=== PATIENT | female | born 1985 | race Caucasian/White ===

== ENCOUNTER 2017-12-04 01:42 | Emergency (ER) | payer SELFPAY ==
[~2017-12-04] VITALS: Ht 172.7 cm; Wt 148.3 kg
[2017-12-04 01:53] VITALS: BP_SYST 148
== END 2017-12-04 03:02 | disposition left against medical advice (07) ==
LOC: SED 01:42
DX: S30.861A Insect bite (nonvenomous) of abdominal wall, initial encounter (principal); Z53.21 Procedure and treatment not carried out due to patient leaving prior to being seen by health care provider; W57.XXXA Bitten or stung by nonvenomous insect and other nonvenomous arthropods, initial encounter; Y93.89 Activity, other specified; Y92.89 Other specified places as the place of occurrence of the external cause; Y99.8 Other external cause status

== ENCOUNTER 2018-07-29 21:15 | Emergency (ER) | payer MEDICAID ==
[~2018-07-29] VITALS: Ht 172.7 cm; Wt 145.1 kg
[2018-07-29 21:24] VITALS: BP_SYST 158
--- NOTE | 2018-07-29 21:28 | NUR ---
Patient triaged and placed in waiting room. VSS and patient appears in no acute distress at this time. Accompanied by friend, awaiting available bed, and MD notified of need for MSE.
--- NOTE | 2018-07-29 22:49 | NUR ---
Patient to ER bed 04 to gown for evaluation. Side rails up. Report given to Ginny CULLEN.
--- NOTE | 2018-07-29 22:50 | NUR ---
ER Dr. Vinson at bedside examining patient.
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
[2018-07-29] MEDS ORDERED: KETOROLAC TROMETHAMINE 60 MG/2 ML VIAL IM ONE (23:45)
--- NOTE | 2018-07-30 00:12 | NUR ---
Patient transported to radiology via ambulatory, accompanied by senior graduate advisor.
--- NOTE | 2018-07-30 00:23 | NUR ---
Patient back to bed 4 from radiology.
[2018-07-30 00:45] VITALS: BP_SYST 158
--- NOTE | 2018-07-30 00:46 | NUR ---
Patient given written and verbal discharge instructions and verbalizes understanding. ER MD discussed with patient the results and treatment provided. Patient in stable condition. ID arm band removed. Rx of norco and ibuprofen given. Patient educated on pain management and to follow up with PMD. Pain Scale 1/10. Opportunity for questions provided and answered. Medication side effect fact sheet provided.
== END 2018-07-30 00:45 | disposition home or self-care (01) ==
LOC: SED 21:15
DX: S43.401A Unspecified sprain of right shoulder joint, initial encounter (principal); S73.101A Unspecified sprain of right hip, initial encounter; R03.0 Elevated blood-pressure reading, without diagnosis of hypertension; Z88.1 Allergy status to other antibiotic agents; V43.52XA Car driver injured in collision with other type car in traffic accident, initial encounter; Y93.89 Activity, other specified; Y92.410 Unspecified street and highway as the place of occurrence of the external cause; Y99.8 Other external cause status
CPT/HCPCS: 73030; 73502; 81025; 96372; 99283; J1885